=== PATIENT | female | born 1960 | race Hispanic/Latino ===

== ENCOUNTER 2017-05-31 19:35 | Emergency (ER) | payer OTHER ==
--- NOTE | 2017-05-31 22:53 | RAD ---
THREE VIEWS OF THE LEFT SHOULDER 05/31/17 INDICATION: Left shoulder pain for two days. The patient suspects that it is work related but denies chest pain o r shortness of breath. COMPARISON: None. FINDINGS: There is mild acromioclavicular osteoarthrosis involving the left shoulder. The glenohumeral joint is normal appearing. The visualized scapula is normal appearing. The visualized left lung is clear. The re are vascular calcifications involving the aortic arch. IMPRESSION: 1. Mild left acromioclavicular joint osteoarthrosis. 2. No acute fracture or subluxation. POS: [facility]
[2017-05-31] MEDS ORDERED: Diazepam 5 MG TAB ONE (23:07)
== END 2017-06-01 00:40 | disposition home or self-care (01) ==
LOC: ERS 19:35
DX: S46.812A Strain of other muscles, fascia and tendons at shoulder and upper arm level, left arm, initial encounter (principal); M19.012 Primary osteoarthritis, left shoulder; Z79.899 Other long term (current) drug therapy; X50.1XXA Overexertion from prolonged static or awkward postures, initial encounter
CPT/HCPCS: 93005